=== PATIENT | male | born 1980 | race Caucasian/White ===

== ENCOUNTER 2022-10-14 15:17 | Inpatient (IN) ==
[2022-10-14 15:56] LABS: Appearance Urine Clear (Clear); Bacteria Urine Automated 1+ (Negative); Bilirubin Urine Negative (Negative); Blood Urine Negative (Negative); Cast Urine Automated 0 /lpf (0-5); Color Urine Yellow; Glucose Urine UA 3+ (Negative); Ketones Urine Trace (Negative); Leukocyte Esterase Urine 1+ (Negative); Nitrite Urine Negative (Negative); Protein Urine Negative (Negative); RBC Urine Automated 0-4 /hpf (0-4); Specific Gravity Urine 1.031 (1.000-1.030); Urobilinogen Urine Negative (Negative); WBC Urine Automated >30 /hpf (0-5)
[2022-10-14] MEDS ORDERED: SODIUM CHLORIDE 0.9% 1000ML 1,000 ML IV ONE (15:56)
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
[2022-10-14 16:43] LABS: Hemoglobin 16.1 g/dl (14.0-18.0); Mean Corpuscular Hemoglobin 31.3 pg (25.0-34.0); Mean Corpuscular Hgb Conc 35.8 g/dL (32.0-36.0); Mean Corpuscular Volume 87.4 fL (80.0-100.0); Platelet Count 66 K/uL (130-400); RDW Coefficient of Variation 12.7 % (11.5-14.5); RDW Standard Deviation 40.9 fL (36.4-46.3); Red Blood Count 5.15 M/uL (4.63-6.08); White Blood Count 7.34 K/ul (4.8-10.8)
[2022-10-14 16:44] LABS: Basophils # (auto) 0.03 K/uL (0-0.2); Basophils % (auto) 0.4 %; Eosinophils # (auto) 0.07 K/uL (0-0.50); Immature Granulocytes # (auto) 0.03 K/uL (0.00-0.02); Immature Granulocytes % (auto) 0.4 %; Lymphocytes # (auto) 2.24 K/uL (1.2-3.4); Lymphocytes % (auto) 30.5 %; Monocytes # (auto) 0.31 K/uL (0.24-0.82); Monocytes % (auto) 4.2 %; Neutrophils # (auto) 4.66 K/uL (1.4-6.5); Neutrophils % (auto) 63.5 %; Platelet Estimate Decreased (Normal)
[2022-10-14 17:27] LABS: Alanine Aminotransferase 30 U/L (7-52); Albumin Globulin Ratio 1.3 (0.9-2); Albumin Level 3.6 gm/dl (3.4-5.0); Alkaline Phosphatase 162 U/L (34-104); Anion Gap 7 (3-11); Bilirubin,Total 1.3 mg/dl (0.2-1.0); Blood Urea Nitrogen 15 mg/dl (6-23); Calcium 8.4 mg/dl (8.5-10.1); Carbon Dioxide 29 mmol/L (21-32); Chloride 95 mmol/L (98-107); Est GFR (African American) 121.9 ml/min; Est GFR (Non-African American) 105.2 ml/min; Globulin 2.8 gm/dl (2.5-4.0); Glucose 586 mg/dl (70-99(Fasting)); Lipase 86 U/L (11-82); Sodium 131 mmol/L (136-145); Total Protein 6.4 gm/dl (6.0-8.3)
[2022-10-14] MEDS ORDERED: INSULIN HUMAN REGULAR IV STA (17:36)
[2022-10-14] MEDS ORDERED: STAT IV Infusion **Titration per Protocol STA (18:55)
[2022-10-14] MEDS ORDERED: HHS GOAL RANGE 250-350 mg/dl ONE (18:56)
[2022-10-14] MEDS ORDERED: SODIUM CHLORIDE 0.45 % 1,000 ML IV SCH (19:00)
[2022-10-14] MEDS ORDERED: PENDING D5 1/2NS+20mEq KCL IVF SCH (19:15)
[2022-10-14] MEDS ORDERED: SODIUM CHLOR 0.45% + 20MEQ KCL 20 MEQ/1,000 ML BAG IV SCH (19:45)
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
[2022-10-14] MEDS: INSULIN REGULAR 250 UNITS in SODIUM CHLORIDE 0.9% 247.5 ML IV SCH ×2 (20:03→20:32)
[2022-10-14 20:11] LABS: BUN Creatinine Ratio 16.3 (10-20); Calcium 8.2 mg/dl (8.5-10.1); Creatinine Clr Calc Pharmacy 149.6 ml/min; Est GFR (African American) 126.8 ml/min; Est GFR (Non-African American) 109.4 ml/min; Potassium 3.9 mmol/L (3.5-5.1)
[2022-10-14 21:58] LABS: Amphetamines+Metham, Urine Neg (Neg); Barbiturates, Urine Neg (Neg); Benzodiazepine, Urine Neg (Neg); Cocaine, Urine Neg (Neg); MDMA (Ecstacy), Urine Neg (Neg); Methadone, Urine Neg (Neg); Opiate, Urine Neg (Neg); Phencyclidine, Urine Neg (Neg)
[2022-10-14] MEDS ORDERED: ALUMINUM/MAGNESIUM SUSP 30 ML UDC PO PRN (22:14)
[2022-10-14] MEDS ORDERED: GLUCOSE 10 TAB/TUBE PO PRN (22:14)
[2022-10-14] MEDS ORDERED: MAGNESIUM HYDROXIDE SUSP 30 ML UDC PO PRN (22:14)
[2022-10-14] MEDS ORDERED: ACETAMINOPHEN 325 MG TAB PO PRN (22:14)
[2022-10-14] MEDS ORDERED: CARBOHYDRATES FOR HYPOGLYCEMIA PO PRN (22:14)
[2022-10-14] MEDS ORDERED: GLUCAGON FOR INJ 1 MG VIAL SQ PRN (22:14)
[2022-10-14] MEDS ORDERED: POLYETHYLENE (MIRALAX) 17 GM PACK PO PRN (22:14)
[2022-10-14] MEDS ORDERED: PHARMACY GLYCEMIC MGMT CONSULT PRN (22:14)
[2022-10-14] MEDS ORDERED: GLUCOSE 40% GEL 15 GM TUBE PO PRN (22:14)
[2022-10-14] MEDS ORDERED: DEXTROSE 50% 50 ML SYRINGE IV PRN (22:14)
[2022-10-14] MEDS ORDERED: ONDANSETRON INJ 2 MG/ML 2 ML VIAL IV PRN (22:14)
[2022-10-14] MEDS: SODIUM CHLORIDE 0.9% 1000ML 1,000 ML IV SCH ×2 (23:07→23:09)
[2022-10-14 23:38] LABS: Calcium 8.1 mg/dl (8.5-10.1); Potassium 3.6 mmol/L (3.5-5.1)
[2022-10-14 23:43] LABS: BUN Creatinine Ratio 14.6 (10-20); Est GFR (African American) 125.5 ml/min; Est GFR (Non-African American) 108.3 ml/min
[2022-10-15] MEDS: D5W AND 1/2NSS + 20MEQ KCL 20 MEQ/1,000 ML BAG IV SCH ×2 (01:43→09:09)
[2022-10-15 04:03] LABS: Basophils # (auto) 0.03 K/uL (0-0.2); Basophils % (auto) 0.3 %; Eosinophils # (auto) 0.13 K/uL (0-0.50); Eosinophils % (auto) 1.5 %; Hematocrit (blood only) 45.8 % (40.1-51.0); Hemoglobin 16.2 g/dl (14.0-18.0); Immature Granulocytes # (auto) 0.04 K/uL (0.00-0.02); Immature Granulocytes % (auto) 0.5 %; Lymphocytes # (auto) 3.52 K/uL (1.2-3.4); Lymphocytes % (auto) 40.9 %; Mean Corpuscular Hemoglobin 31.2 pg (25.0-34.0); Mean Corpuscular Hgb Conc 35.4 g/dL (32.0-36.0); Mean Corpuscular Volume 88.2 fL (80.0-100.0); Mean Platelet Volume 11.3 fL (9.4-12.4); Monocytes # (auto) 0.39 K/uL (0.24-0.82); Monocytes % (auto) 4.5 %; Neutrophils % (auto) 52.3 %; Platelet Count 223 K/uL (130-400); RDW Standard Deviation 41.9 fL (36.4-46.3); Red Blood Count 5.19 M/uL (4.63-6.08); White Blood Count 8.61 K/ul (4.8-10.8)
[2022-10-15 04:16] LABS: Calcium 8.1 mg/dl (8.5-10.1); Potassium 3.6 mmol/L (3.5-5.1)
[2022-10-15 04:18] LABS: Albumin Level 3.5 gm/dl (3.4-5.0); Bilirubin,Total 1.5 mg/dl (0.2-1.0); Potassium 3.3 mmol/L (3.5-5.1)
[2022-10-15 04:22] LABS: BUN Creatinine Ratio 13.8 (10-20); Creatinine Clr Calc Pharmacy 148.6 ml/min; Est GFR (African American) 126.8 ml/min; Est GFR (Non-African American) 109.4 ml/min
[2022-10-15] MEDS ORDERED: POTASSIUM CHLORIDE CRTAB 20 MEQ TABCR PO STA (04:22)
[2022-10-15 04:24] LABS: Albumin Globulin Ratio 1.3 (0.9-2); BUN Creatinine Ratio 14.1 (10-20); Creatinine Clr Calc Pharmacy 152.4 ml/min; Est GFR (African American) 128.1 ml/min; Est GFR (Non-African American) 110.6 ml/min; Globulin 2.7 gm/dl (2.5-4.0); Partial Thromboplastin Ratio 0.8; Prothrombin Time 10.3 Seconds (9.0-12.0); Total Protein 6.2 gm/dl (6.0-8.3)
[2022-10-15] MEDS: POTASSIUM CHLORIDE / WTR 10 MEQ/100 ML PLCT IV SCH ×2 (05:21→06:26)
[2022-10-15] MEDS ORDERED: LANTUS PER UNIT CHARGE SQ SCH (07:30)
[2022-10-15] MEDS ORDERED: CALCIUM 600MG + VIT D 400 IU TAB PO SCH (09:00)
[2022-10-15 10:18] LABS: BUN Creatinine Ratio 13.2 (10-20); Calcium 7.7 mg/dl (8.5-10.1); Creatinine Clr Calc Pharmacy 156.5 ml/min; Est GFR (African American) 129.5 ml/min; Est GFR (Non-African American) 111.7 ml/min; Potassium 3.7 mmol/L (3.5-5.1)
[2022-10-15] MEDS ORDERED: NovoLIN-R INSULIN PER UNIT CHARGE SC SCH (11:30)
[2022-10-15] MEDS ORDERED: INSULIN ASPART PER UNIT SC SCH (11:30)
--- NOTE | 2022-10-15 11:36 | Electrocardiogram Report ---
Test Reason : Blood Pressure : / mmHG Vent. Rate : 060 BPM Atrial Rate : 060 BPM P-R Int : 122 ms QRS Dur : 084 ms QT Int : 420 ms P-R-T Axes : 029 008 009 degrees QTc Int : 420 ms Poor data quality, interpretation may be adversely affected Normal sinus rhythm Low voltage QRS Nonspecific ST abnormality Abnormal ECG No previous ECGs available Confirmed by Andrei Kraft ([id number]) on 10/15/2022 11:35:52 AM Referred By: REFERRED SELF Confirmed By:Andrei Kraft
[2022-10-15 12:02] LABS: BUN Creatinine Ratio 12.5 (10-20); Calcium 8.3 mg/dl (8.5-10.1); Creatinine Clr Calc Pharmacy 148.6 ml/min; Est GFR (African American) 126.8 ml/min; Est GFR (Non-African American) 109.4 ml/min; Potassium 4.2 mmol/L (3.5-5.1)
--- NOTE | 2022-10-15 14:32 | Pharmacy Report ---
Pharmacy Glycemic Short Note 2 - Date of Service October 15, 2022 - Glycemic Short BSG Results (Last 24 hours): 10/14/22 10/14/22 10/14/22 15:31 16:09 19:08 Glucose 586 H* 382 H* POC Glucose > 600 H* 10/14/22 10/14/22 10/14/22 19:23 20:55 21:55 Glucose POC Glucose 382 H* 379 H* 257 H 10/14/22 10/14/22 10/15/22 22:59 23:03 00:02 Glucose 229 H POC Glucose 243 H 199 H 10/15/22 10/15/22 10/15/22 01:05 02:03 03:06 Glucose POC Glucose 179 H 184 H 216 H 10/15/22 10/15/22 10/15/22 03:48 03:48 04:05 Glucose 184 H 183 H POC Glucose 184 H 10/15/22 10/15/22 10/15/22 05:03 05:45 06:05 Glucose 194 H POC Glucose 195 H 234 H 10/15/22 10/15/22 10/15/22 07:02 08:02 09:04 Glucose POC Glucose 208 H 227 H 201 H 10/15/22 10/15/22 10/15/22 10:00 11:07 11:17 Glucose 352 H* POC Glucose 247 H 327 H* OUTPATIENT ANTIDIABETIC REGIMEN: * Trulicity 0.75 mg SQ weekly * Lantus 30 units SQ daily * HbA1c = 17.5% per Epic per provider notes PATIENT HAS BEEN NON-COMPLIANT ON ABOVE MEDS ASSESSMENT: * 42 y/o M admitted last night for acute hyperglycemia. Patient has history of diabetes but has been non-compliant on prescribed anti-diabetic meds. * Insulin drip was started yesterday. The drip ran between 2.4 units/hr to 5 units/hr during the course of 12 hrs. This morning it was running at 4.2units/hr when it was discontinued. Lantus 30 units given before discontinuation. * Spoke to attending doctor. Patient wants to go home. Recommended continue Lantus 30 units SQ daily on discharge. * Patient said that he is allergic to Novolog insulin with reaction of rash and he gets sick. * Ordered regular insulin at lunch instead with looser parameters based on wt and stress between 1 and 2. PLAN FOR INPATIENT GLYCEMIC CONTROL: * Basal insulin * Lantus 30 units SQ QAM * Bolus insulin * Regular insulin per scale ACHS or Q6hrs while NPO * Goal Range: Low 110 mg/dL - High 160 mg/dL * Correction Factor: 30 mg/dL/unit * Nutritional / Prandial insulin per carb ratio of 1 unit per 8 grams CHO consumed
--- NOTE | 2022-10-15 15:01 | Discharge Summary ---
Date of Service October 15, 2022 Admission HPI Per Admitting Provider This is a 42-year-old male who has significant past medical history of T2DM, HTN, HLD, APRIL noncompliant with CPAP, asthma, morbid obesity, depression with anxiety who presents to ED secondary to hyperglycemia. Patient has been receiving readings of 5 and 600 on his glucometer at home. He has not been taking his insulin as he has been out for at least 2 months, may be more. He has not been taking any of his prescribed medications and currently is unaware of what he should be taking. is at bedside. Of significance patient was recently seen at [facility] ER secondary to what appeared to be an a ngioedema episode. He was referred to allergy and immunology who he saw yesterday. It was felt it may be secondary to lisinopril and therefore this has been stopped. He also had a further lab work-up. During his lab work-up his A1c was found to be 17.5. Upon questioning patient he is very difficult to direct as he continues to place blame on [facility] for prescribing prednisone for his episode of angioedema and now he has elevated blood sugars. He is also not happy with his PCP as he does not understand why his blood sugar is not lowering, despite not taking medication. Currently he states he feels, "good." He does complain of polydipsia and polyuria but otherwise denies any fever, chills, sweats, lightheadedness, dizziness, chest pain, shortness breath, cough, nausea, vomiting, abdominal pain, dysuria, increased urgency with urination, hematuria, melena or hematochezia. Admission Exam Per Admitting Provider Constitutional:Morbidly obese, M, appears older than stated age, vitals as above, NAD, sitting up in bed, answers questions Head: Normocephalic, Atraumatic Eyes: PERRL, conjunctivae normal, anicteric sclerae ENMT: external ear and nose normal, oropharynx normal Neck: trachea midline, no thyromegaly normal visual inspection Respiratory: normal respiratory effort, lungs clear to auscultation, no wheeze, rales, rhonchi. Normal insp/exp effort, no accessory muscle use Cardiovascular: RRR, no murmur, no edema Vessels: no JVD or carotid bruit Chest: normal inspection of chest Abdomen:protuberant abd, normal bowel sounds, soft, nontender, no hepatosplenomegaly Musculoskeletal: no cyanosis or clubbing, AROM x 4 Skin: no rashes, warm and dry normal turgor Neurologic: PERRL, EOMI, accommodation nl, no face palsy, no dysarthria CN's II-XI intact bilaterally and moves all extremities Psychiatric: A+Ox3, euthymic affect Lymphatic: no cervical or axillary lymphadenopathy : deferred Principal Diagnosis Uncontrolled type 2 diabetes mellitus Acute hyperglycemia Discharge Exam Constitutional: WD/WN, vitals as above, NAD, sitting up in bed, pleasant, conversing easily Respiratory: normal respiratory effort, lungs clear to auscultation, no wheeze, rales, rhonchi. Normal insp/exp effort, no accessory muscle use Cardiovascular: RRR, no murmur, no edema Vessels: no JVD or carotid bruit Chest: normal inspection of chest Abdomen: normal bowel sounds, soft, nontender, no hepatosplenomegaly Musculoskeletal: no cyanosis or clubbing, extremities motor strength 5/5 Skin: no rashes, warm and dry normal turgor Neurologic: PERRL, EOMI, accommodation nl, no face palsy, no dysarthria CN's II- XI intact bilaterally and moves all extremities Psychiatric: A+Ox3, euthymic affect Lymphatic: no cervical or axillary lymphadenopathy : deferred Discharge Data Allergies Allergy/AdvReac Type Severity Reaction Status Date / Time NATO Inhibitors Allergy Severe angioedema Verified 10/14/22 17:55 insulin aspart Allergy Intermediate Hives Verified 10/14/22 17:53 piperacillin Allergy Intermediate Verified 10/14/22 17:53 vancomycin Allergy Intermediate Verified 10/14/22 17:53 methylphenidate Allergy Mild HIVES Verified 10/14/22 17:53 gabapentin Allergy Hives Verified 10/14/22 17:53 levofloxacin [From Levaquin] Allergy Verified 10/14/22 17:53 CONTRAST DYE Allergy Mild HIVES Uncoded 10/14/22 17:53 Consultations 10/14/22 17:49 ED Decision to Admit Stat Hospital Course (1) Acute hyperglycemia: (2) Medical non-compliance: (3) T2DM (type 2 diabetes mellitus): (4) Thrombocytopenia: Plan This is a 42-year-old male who has significant past medical history of T2DM, HTN, HLD, APRIL noncompliant with CPAP, asthma, morbid obesity, depression with anxiety who presents to ED secondary to hyperglycemia. Patient's A1c in September was 17.5%. Patient had not been taking insulin for at least last 2 months. He was recently in [facility] and had received 3-day course of prednisone for possible angioedema due to lisinopril. On presentation, patient blood glucose was 500s. He did not have any anion gap acidosis. He was started on IV insulin and then admitted to telemetry floor. Patient's blood glucose down trended gradually over the course of the hospitalization. Discussion was done with pharmacy and primary special educator regarding the dosing of insulin; patient was discharged on 30 units of Lantus once daily and Humalog 10 units 3 times daily. He underwent diabetic teaching with educator. He was prescribed Insulin along with glucometer, test strips; cost well check. Co-pay was $0. On admission, he was also found to be thrombocytopenic with platelet of 66. However, repeat lab in the morning showed platelets of 223. Patient was discharged home with instruction to follow-up with his primary care doctor. Total Time Total Time Spent Total Time Spent (In Minutes): 40 Total Time Includes: Examination of the Patient, Discharge Planning, Medication Reconciliation, Communication With Other Providers and Other Discharge Plan Discharge Items Patient Disposition: Home - Self-Care Reason For Visit: ACUTE HYPERGLYCEMIA Discharge Diagnosis: Uncontrolled type 2 diabetes mellitus Activity: Resume your previous activity Non-emergency contact: Primary Care Provider Call non-emergency contact if: you have any medication questions and your symptoms worsen Follow-up/Referrals: Bryan You MD [Primary Care Provider] - (Date & Time 10/20/2022 10:20 AM Provider Bryan You MD [facility] ) Diet: Carb Consistent or DM2 Addtl Attending Provider Instructions: You were admitted to the hospital with uncontrolled blood glucose levels. You are prescribed insulin. Please use it as instructed below: 1) Lantus 30 units subcu once daily 2) regular insulin 10 units 3 times a day before meal (30 to 40 minutes before meal). Please check your blood glucose level 3 times a day. Please follow-up with your primary care doctor as scheduled level. Pending Studies at Discharge: No Stand-Alone Forms: My [facility] [employer], Smoking Cessation Medications and DC Order Prescriptions: New insulin glargine [Lantus Solostar U-100 Insulin] 100 unit/mL (3 mL) insulin pen 30 unit subcut DAILY Qty: 15 0RF insulin regular human 100 unit/mL (3 mL) insulin pen 10 unit subcut TID Qty: 15 0RF (DME) pen needle, diabetic [Pen Needle] 32 gauge x 5/32" needle See Rx Instructions .Route Qty: 100 0RF Rx Instructions: As directed (DME) blood-glucose meter [OneTouch Verio Flex meter] Misc See Rx Instructions .Route Qty: 1 0RF Rx Instructions: As directed (DME) lancets [OneTouch Delica Plus Lancet] 33 gauge misc See Rx Instructions .Route Qty: 100 0RF Rx Instructions: As directed (DME) OneTouch Verio test strips Strip See Rx Instructions .Route Qty: 100 0RF Rx Instructions: As directed Continued epinephrine 0.3 mg/0.3 mL auto-injector 0.3 mg IM UD PRN (Reason: Allergic Reaction) albuterol sulfate 90 mcg/actuation HFA aerosol inhaler 2 puff INHALATION Q4 PRN (Reason: Cough) Trulicity 0.75 mg/0.5 mL pen injector 0.75 mg SUBCUT WK Discontinued insulin glargine [Lantus Solostar U-100 Insulin] 100 unit/mL (3 mL) insulin pen 30 unit SUBCUT DAILY Discharge Orders: Discharge Order (Routine); Ordered 10/15/22 Ordered By: Luciano Braga Admission Data Admit Date/Time: 10/14/22 18:01 Attending Provider: Luciano Braga Admit Provider: Jesusita Barker Primary Care Provider: Bryan You Other Providers: Jesusita Barker Other Interventions: Discharge Summary Assessment (RN) Last Done: 10/15/22 14:03
[2022-10-16] MEDS ORDERED: NovoLIN-R INSULIN PER UNIT CHARGE SC SCH (02:00)
[2022-10-16] MEDS ORDERED: LANTUS PER UNIT CHARGE SQ SCH (09:00)
== END 2022-10-15 14:30 | disposition home or self-care (01) | DRG 639 ==
LOC: ED 15:17 → EDINP 18:01 → SUATTDRO 18:01 → 2S 20:14